=== PATIENT | female | born 1950 | race Caucasian/White ===

== ENCOUNTER → 2016-08-11 | Outpatient (CLI) | payer OTHER | LOC: KOH-I 09:46 | DX: M25.562 Pain in left knee (principal); M25.462 Effusion, left knee | CPT/HCPCS: 73564 ==

== ENCOUNTER → 2020-11-18 | Outpatient (CLI) | payer MEDICARE, OTHER | LOC: KOH-I 13:18 | DX: M25.561 Pain in right knee (principal); M25.562 Pain in left knee | CPT/HCPCS: 73562 ==

== ENCOUNTER → 2021-01-08 | Outpatient (CLI) | payer MEDICARE, OTHER ==
[2021-01-08 13:20] LABS: HEMOGLOBIN 12.8 gm/dl (12.3-15.3); RED BLOOD COUNT 4.23 M/UL (4.00-5.10); WHITE BLOOD COUNT 5.3 K/UL (4.5-11.0)
[2021-01-08 13:22] LABS: BUN/CREATININE RATIO 20 (0-10)
== END ==
LOC: LAB 12:05
PROVIDERS: Internal Medicine Cardiovascular Disease
DX: I10 Essential (primary) hypertension (principal); E03.9 Hypothyroidism, unspecified
CPT/HCPCS: 36415; 80053; 80061; 84436; 84439; 84443; 85025

== ENCOUNTER → 2021-08-12 | Outpatient (CLI) | payer OTHER ==
[~2021-08-12] VITALS: Ht 167.6 cm; Wt 65.3 kg
[~2021-08-12] MED LIST: B12 ACTIVE1000 MCG PO; CITALOPRAM HBR10 MG PO; HYDROCHLOROTHIA25 MG PO; HYDROCODON-ACE1 EAC4 PO; ISOSORBIDE MONO30 MG PO; PRILOSEC OTC20 MG PO; SYNTHROID25 MCG PO
[2021-08-12 10:12] LABS: HEMOGLOBIN 13.5 gm/dl (12.3-15.3); RED BLOOD COUNT 4.46 M/UL (4.00-5.10)
[2021-08-12 10:37] LABS: BUN/CREATININE RATIO 16 (0-10)
== END ==
LOC: OPSV2 08-08 09:00
PROVIDERS: Orthopaedic Surgery
DX: Z01.818 Encounter for other preprocedural examination (principal); M21.062 Valgus deformity, not elsewhere classified, left knee; J43.9 Emphysema, unspecified
CPT/HCPCS: 36415; 71046; 80048; 85027; 93005

== ENCOUNTER → 2021-09-09 | Outpatient (CLI) | payer OTHER | LOC: ECHO 11:11 → NM 13:00 | DX: R07.9 Chest pain, unspecified (principal); R06.02 Shortness of breath | CPT/HCPCS: ECHO; 78452; 93017; 93306; A9502; J2785 ==

== ENCOUNTER → 2021-10-13 | Outpatient (CLI) | payer OTHER ==
[~2021-10-13] MED LIST changes: +BACLOFEN5 MG PO; +LOPRESSOR 25 MG25 MG PO
[2021-10-13 10:51] LABS: HEMOGLOBIN 12.6 gm/dl (12.3-15.3); RED BLOOD COUNT 4.18 M/UL (4.00-5.10); WHITE BLOOD COUNT 4.7 K/UL (4.5-11.0)
[2021-10-13 11:32] LABS: BUN/CREATININE RATIO 21 (0-10)
== END ==
LOC: OPSV2 10:00 → EDSTATUS 10:00 → OPSV2 10:11
PROVIDERS: Orthopaedic Surgery
DX: Z01.812 Encounter for preprocedural laboratory examination (principal); M21.062 Valgus deformity, not elsewhere classified, left knee; M17.12 Unilateral primary osteoarthritis, left knee
CPT/HCPCS: 80048; 85027